=== PATIENT | male | born 1930 | race Two or more races ===

== ENCOUNTER 2018-01-31 17:06 | Emergency (ER) | payer OTHER, MEDICAID ==
--- NOTE | 2018-01-31 17:31 | ED Physician Chart ---
ED Chief Complaint/HPI - Patient Information Date Seen:: 01/31/18 Time Seen:: 17:26 Chief Complaint:: fish bone in the throat History of Present Illness:: this is an 87 yo male who is concerned about a fishbone in his throat with no difficulty breathing or swallowing. he has hypertension and has had a stroke in he past. Allergies:: Allergies Allergy/AdvReac Type Severity Reaction Status Date / Time No Known Allergies Allergy Verified 01/31/18 17:17 Vitals:: Vital Signs - 8 hr 01/31/18 17:20 Temp 98.0 F HR 100 RR 17 BP 144/64 O2 Sat % 99 Historian:: Patient, Family Member, Medical Records Review:: Nurse's Note Reviewed, Old Chart Reviewed ED Review of Systems - Review of Systems ENT: Other (throat pain on swallowing.) ED Past Medical History - Past Medical History Obtainable: Yes Past Medical History: HTN, CAD, CVA/TIA, Dyslipidemia Family History: None Social History: Non Smoker, No Alcohol, No Drug Use, Surgical History: Cholecystectomy, other (left hip surgery) Psychiatricy History: None Family Medical History - Family Member Father History Unknown: Yes Living Status: ED Physical Exam - Physical Examination General/Constitutional: Awake, Well-developed, well-nourished, Alert, No distress, GCS 15, Non-toxic appearing, Ambulatory Head: Atraumatic Eyes: Lids, conjuctiva normal, PERRL, EOMI Skin: Nl inspection, No rash, No skin lesions, No ecchymosis, Well hydrated, No lymphadenopathy ENMT: External ears, nose nl, Nasal exam nl, Lips, teeth, gums nl Neck: Nontender, Full ROM w/o pain, No JVD, No nuchal rigidity, No bruit, No mass, No stridor Respiratory: Nl effort/Exclusion, Clear to Auscultation, No Wheeze/Rhonchi/Rales Cardio Vascular: RRR, No murmur, gallop, rubs, NL S1 S2 GI: No tenderness/rebounding/guarding, No organomegaly, No hernia, Normal BS's, Nondistended, No mass/bruits, No McBurney tenderness : No CVA tenderness Extremities: No tenderness or effusion, Full ROM, normal strength in all extremities, No edema, Normal digits & nails Neuro/Psych: Alert/oriented, DTR's symmetric, Normal sensory exam, Normal motor strength, Judgement/insight normal, Mood normal, Normal gait, No focal deficits Misc: Normal back, No paraspinal tenderness ED Labs/Radiology/EKG Results - Radiology Results Results: ct scan of the neck = no fb and nad ED Assessment - Assessment General Assessment: fishbone in the throat ED Septic Shock - . Is Septic Shock (SBP<90, OR Lactate>4 mmol\L) present?: No - <6hrs of presentation: Vital Signs: Vital Signs - 8 hr 01/31/18 17:20 Temp 98.0 F HR 100 RR 17 BP 144/64 O2 Sat % 99 ED Reassessment (Disposition) - Reassessment Reassessment Condition:: Improved - Diagnosis Diagnosis:: throat pain - Aftercare/Follow up Instructions Aftercare/Follow-Up Instructions:: Counseled pt regarding lab results/diagnosis & need follow up, Refer to Discharge Instructions, Counseled pt & family regarding lab results/diagnosis & need follow up - Patient Disposition Discharge/Transfer:: Home Condition at Disposition:: Improved
--- NOTE | 2018-02-01 09:22 | Diagnostic Imaging Report ---
CT scan soft tissues of the neck without intravenous contrast HISTORY: Pain, question foreign body Total DLP equals 362 CTDI equals 14.7 Axial sections were obtained from the maxilla down to level below the thoracic inlet. The exam demonstrates an approximate 4 mm linear radiodensity situated in the upper cervical esophagus. Findings are consistent with a foreign body (question fishbone). No abnormality seen in the region of the epiglottis, valleculae, or perform sinuses. No abnormality seen to the region of the vocal cords. Extensive atherosclerotic calcification seen within the aortic arch. The parotid glands appear normal. The submandibular glands appear normal. IMPRESSION: 1. Findings consistent with a foreign body that may represent a fishbone within the upper cervical esophagus as noted above
== END 2018-01-31 19:30 | disposition home or self-care (01) ==
LOC: ER 17:06
DX: T17.228A Food in pharynx causing other injury, initial encounter (principal); I10 Essential (primary) hypertension; I25.10 Atherosclerotic heart disease of native coronary artery without angina pectoris; E78.5 Hyperlipidemia, unspecified; Z86.73 Personal history of transient ischemic attack (TIA), and cerebral infarction without residual deficits; Z90.49 Acquired absence of other specified parts of digestive tract; X58.XXXA Exposure to other specified factors, initial encounter; Y93.89 Activity, other specified; Y92.89 Other specified places as the place of occurrence of the external cause; Y99.8 Other external cause status
CPT/HCPCS: 70490-TC; Z7502